=== PATIENT | male | born 1945 | race Two or more races ===

== ENCOUNTER 2022-07-27 19:24 | Inpatient (IN) | payer MEDICARE, OTHER ==
[~2022-07-27] VITALS: Ht 172.7 cm; Wt 88.0 kg
--- NOTE | 2022-07-27 20:33 | NUR ---
ANA FARRIS FROM [facility] C/O EPISODE OF AGGITATION & ELOPMENT ATTEMPT. +WITNESSED GLF. -TRAUMA, PAIN OR KO. ASSISTANT TECHNICIAN TOOK ATIVAN AT SNF. PT A/OX2. TOLERATING R/A WELL WITH NO RESP DISTRESS. SAFETY MEASURES IN PLACE.
--- NOTE | 2022-07-27 21:00 | NUR ---
LAB AT BEDSIDE
--- NOTE | 2022-07-27 21:03 | NUR ---
ANA FARRIS FROM [facility] C/O EPISODE OF AGGITATION ATTEMPTED ELOPEMENT & POSSIBLE GLF. PT AWAKE AND CONFUSED +REDIRECTABLE. DENIES ANY PAIN OR INUJURIES. ATIVAN GIVEN BY SNF IMPLEMENTATION SERVICES ANALYST. CHANGED INTO GOWN AND PLACED ON MONITOR AND V/S WNL. BED AT LOWEST LEVEL, SAFETY PRECAUTIONS IN PLACE, AND SITTER AT BEDSIDE.
--- NOTE | 2022-07-27 21:18 | NUR ---
URINE COLLECTED AND SENT TO LAB
[2022-07-27 21:20] LABS: BASOPHILS % (AUTO) 0.3 % (0.0-2.0); EOSINOPHILS % (AUTO) 1.7 % (0.0-6.0); HEMATOCRIT 35 % (39-51); HEMOGLOBIN 11.8 g/dL (13.5-17.5); LYMPHOCYTES # (AUTO) 0.7 K/uL (0.8-4.8); LYMPHOCYTES % (AUTO) 10.3 % (20.0-44.0); MEAN CORPUSCULAR HGB CONC 34 g/dl (31.0-36.0); MEAN CORPUSCULAR VOLUME 88 fL (80-96); MONOCYTES # (AUTO) 0.7 K/uL (0.1-1.30); MONOCYTES % (AUTO) 10.2 % (2.0-12.0); NEUTROPHILS # (AUTO) 5.1 K/uL (1.8-8.9); NEUTROPHILS % (AUTO) 77.5 % (43.0-81.0); PLATELET COUNT (AUTO) 257 K/uL (150-450); RED BLOOD CELL COUNT(AUTO) 3.96 MIL/uL (4.5-6.0); WHITE BLOOD COUNT (AUTO) 6.6 K/uL (4.3-11.0)
[2022-07-27 21:31] LABS: CALCIUM, SERUM 8.9 mg/dL (8.5-10.1); CARBON DIOXIDE 31 mmol/L (21-32); CHLORIDE 107 mmol/L (98-107); GLUCOSE 103 mg/dL (74-106); POTASSIUM 3.4 mmol/L (3.5-5.1); SODIUM SERUM 143 mmol/L (136-145); UREA NITROGEN, BLOOD 19 mg/dL (7-18)
[2022-07-27 21:38] LABS: ALANINE AMINOTRANSFERASE 25 U/L (12-78); ALBUMIN 3.3 g/dL (3.4-5.0); ALCOHOL, BLOOD < 3 mg/dL (0-0); ALKALINE PHOSPHATASE 81 U/L (46-116); ASPARTATE AMINOTRANSFERASE 19 U/L (15-37); BILIRUBIN,DIRECT 0.1 mg/dL (0.0-0.2); BILIRUBIN,TOTAL 0.3 mg/dL (0.2-1.0); TOTAL PROTEIN, SERUM 6.3 g/dL (6.4-8.2)
[2022-07-27 21:39] LABS: ACETAMINOPHEN 0 ug/ml (10-30)
[2022-07-27 21:55] LABS: BILIRUBIN,URINE NEGATIVE (NEGATIVE); COLOR,URINE YELLOW (YELLOW); LEUKOCYTE ESTERASE ,URINE NEGATIVE (NEGATIVE); NITRITE, URINE NEGATIVE (NEGATIVE); PROTEIN,URINE NEGATIVE (NEGATIVE); UGLUCOSE NEGATIVE (NEGATIVE); UROBILINOGEN,URINE 0.2 EU/dL (0.2)
[2022-07-27 21:56] LABS: BACTERIA,URINE None seen /HPF (None Seen); CALCIUM OXALATE CRYSTALS,UR Moderate /HPF (None Seen); RBC,URINE 0-2 /HPF (0-2); WBC,URINE 0-2 /HPF (0-3)
[2022-07-27] MEDS ORDERED: POTASSIUM CHLORIDE 10 MEQ TABLET.SA PO ONE (22:00)
[2022-07-27] MEDS ORDERED: POTASSIUM CHLORIDE 10 MEQ TABLET.SA ONE (22:42)
--- NOTE | 2022-07-28 02:08 | NUR ---
PT SLEEPING COMOFRTABLY BREATHING UNLABORED. CALL LIGHT WITHIN REACH SITTER AT BEDSIDE.
--- NOTE | 2022-07-28 02:57 | NUR ---
LARGE INCONTINENT URINE NOTED. CHANGED PT'S DIAPER. PT KEPT CLEAN, DRY, SKIN INTACT. REPOSITITIONED PT. SAFETY MEASURES IN PLACE.
--- NOTE | 2022-07-28 06:06 | NUR ---
PT BECOMING INCREASINGLY AGITATED. MADE AWARE
[2022-07-28] MEDS ORDERED: LORAZEPAM INJ 2 MG/ML VIAL ONE (06:12)
[2022-07-28] MEDS ORDERED: LORAZEPAM INJ 2 MG/ML VIAL IM ONE (06:30)
--- NOTE | 2022-07-28 07:20 | NUR ---
Received pt from [facility] confused try to got out off bed
--- NOTE | 2022-07-28 07:54 | NUR ---
BED GIVEN 213B
[2022-07-28] MEDS ORDERED: SENN-261 PO (08:05)
[2022-07-28] MEDS ORDERED: CLON0.5T PO (08:05)
[2022-07-28] MEDS ORDERED: ZOLP5TAB8 PO (08:05)
[2022-07-28] MEDS ORDERED: ACET-868 PO (08:05)
[2022-07-28] MEDS ORDERED: QUET25TA PO (08:05)
[2022-07-28] MEDS ORDERED: NA P133E RC (08:05)
[2022-07-28] MEDS ORDERED: BISA10SU11 RC (08:05)
[2022-07-28] MEDS ORDERED: LORA-259 PO (08:05)
--- NOTE | 2022-07-28 08:25 | NUR ---
call back from daniel rodrigues to confirm that he is coming to eval pt
--- NOTE | 2022-07-28 08:45 | NUR ---
Rk TAMEZ PSYCH EVALUATION
--- NOTE | 2022-07-28 10:49 | NUR ---
PMRT HERE PLACE PT ON 5150 07/28/2022 AT 1015 FOR UNABLE TO TAKE CARE OF HIM SELF
--- NOTE | 2022-07-28 10:56 | NUR ---
MOVE SHEET SUBMITTED.
--- NOTE | 2022-07-28 11:05 | NUR ---
HAND OFF MEG CORONA TO ROOM 213-B VIA BRY LAST VS
--- NOTE | 2022-07-28 12:15 | NUR ---
RN-ADMISSION NOTES [facility] STAFF BROUGHT THE PATIENT IN THE UNIT VIA HOSPITAL BED,AWAKE A/O X1 ,GUARDED,NO ACUTE DISTRESS NOTED. PATIENT ON 5150 HOLD FOR GD ADULT. UPON FACE TO FACE ASSESSMENT,PATIENT IS CONFUSED UNABLE TO ANSWER QUESTIONS.CONTRABAND AND BELONGINGS INVENTORIED. SKIN ASSESSMENT DONE MRSA SWAB DONE AND SENT TO THE LAB. VITAL SIGN TAKEN AND ORIENTED IN THE ROOM BOTH RAILS UP AND BED ALARM ACTIVATED. NO FAMILY TO BE NOTIFIED ON THE ADMISSION.DR. SHAH ( PSYCHIATRIST) AND NAGELIA VERMA AWARE OF THE ADMISSION.
[2022-07-28] MEDS ORDERED: MAGNESIUM HYDROXIDE 30 ML UDC PO PRN (12:30)
[2022-07-28] MEDS ORDERED: BLOOD SUGAR DIAGNOSTIC 1 EACH STRIP IN ONE (12:30)
[2022-07-28] MEDS ORDERED: ZOLPIDEM TARTRATE 5 MG TABLET PO PRN ×2 (12:30→15:30)
[2022-07-28] MEDS ORDERED: ACETAMINOPHEN 325 MG TABLET PO PRN ×2 (12:30→15:30)
[2022-07-28] MEDS ORDERED: MAG HYDROX/AL HYDROX/SIMETH 30 ML UDC PO PRN (12:30)
--- NOTE | 2022-07-28 14:04 | NUR ---
NISHI Initial Discharge Plan: Pt will be discharged back to [email or web address] ([facility]) located at [address] [place] [id number] . NISHI spoke with Blas, admin, from [facility] and she stated that pt is welcomed back upon discharge. NISHI will coordinate appropriate discharge with pt, family, and MD for placement.
--- NOTE | 2022-07-28 14:05 | NUR ---
NISHI Clinical Note: Pt placed on a 5150 hold for GD. Pt from [facility] and was agitated/aggressive at the facility. Pt will be discharged back to [facility] ([facility]) located at [address] [place], [place] [id number] . NISHI spoke with Blas, admin, from [facility] and she stated that pt is welcomed back upon discharge.
--- NOTE | 2022-07-28 14:05 | NUR ---
Treatment Plan: Pt unable to sign treatment plan due to aggressive behavior.
--- NOTE | 2022-07-28 14:34 | NUR ---
NISHI Family Contact: SW attempted to contact pt's cousin Fransisco ([phone]) and left a detailed voicemail.
[2022-07-28] MEDS ORDERED: NA PHOS,M-B/NA PHOS,DI-BA 1 EA ENEMA RC PRN (15:30)
[2022-07-28] MEDS ORDERED: BISACODYL SUPP (10 MG) 10 MG/SUPP.RECT SUPP.RECT RC PRN (15:30)
[2022-07-28] MEDS ORDERED: SENNOSIDES 8.6 MG TABLET PO PRN (15:30)
[2022-07-28 16:04] VITALS: BP 120/70
[2022-07-28] MEDS: LORAZEPAM 0.5 MG TABLET PO PRN (16:40)
--- NOTE | 2022-07-28 16:42 | NUR ---
RN-NOTES PATIENT IS AGITATED BANGING CALIN CHAIR TABLE WITH BOTH HANDS, REDIRECTED AND ATIVAN 1MG P.O GIVEN PRN ORDER. WILL CONT. MONITORING FOR SAFETY AND BEHAVIOR.
--- NOTE | 2022-07-28 18:59 | NUR ---
RN-NOTES PATIENT IN THE HALLWAY UP IN THE CALIN CHAIR AWAKE A/O X1,CONFUSED GUARDED,NO ACUTE DISTRESS NOTED.NEEDS FREQUENT REDIRECTIONS. COMPLIANT WITH MEDICATIONS.NEEDS MINIMAL ASSIST WITH AMBULATION AND ADL'S.ALL NEEDS ATTENDED AND ANTICIPATED. WILL CONT. MONITORING FOR SAFETY AND BEHAVIOR.WILL ENDORSE TO INCOMING NURSE FOR CONTINUITY OF CARE.
--- NOTE | 2022-07-28 19:45 | NUR ---
GPS RN-NOTES RECEIVED PATIENT AWAKE SITTING IN THE CALIN CHAIR, A/O X1 GUARDED, CONFUSED, UNCOOPERATIVE, AND DISORGANIZED. NOTED PT RESISTIVE TO CARE, NEEDS FREQUENT REDIRECTIONS. NO ACUTE DISTRESS NOTED. NEEDS MAXIMUM ASSIST WITH ADL'S. ALL NEEDS ATTENDED AND ANTICIPATED. MONITORING FOR SAFETY AND BEHAVIORAL CHANGES. WILL CONTINUE TO MONITOR THROUGHOUT THE SHIFT.
[2022-07-28 20:16] VITALS: BP 143/69
--- NOTE | 2022-07-28 22:58 | NUR ---
RN note: Noted patient had difficulty falling asleep, Ambien 5 mg PO given as ordered per clinical assessment .
[2022-07-29 06:47] LABS: BASOPHILS % (AUTO) 0.2 % (0.0-2.0); EOSINOPHILS % (AUTO) 2.7 % (0.0-6.0); HEMATOCRIT 40 % (39-51); HEMOGLOBIN 13.3 g/dL (13.5-17.5); LYMPHOCYTES # (AUTO) 0.9 K/uL (0.8-4.8); LYMPHOCYTES % (AUTO) 13.8 % (20.0-44.0); MEAN CORPUSCULAR HGB CONC 33 g/dl (31.0-36.0); MEAN CORPUSCULAR VOLUME 88 fL (80-96); MONOCYTES # (AUTO) 0.6 K/uL (0.1-1.30); MONOCYTES % (AUTO) 8.8 % (2.0-12.0); NEUTROPHILS % (AUTO) 74.5 % (43.0-81.0); PLATELET COUNT (AUTO) 287 K/uL (150-450); RED BLOOD CELL COUNT(AUTO) 4.55 MIL/uL (4.5-6.0); WHITE BLOOD COUNT (AUTO) 6.7 K/uL (4.3-11.0)
[2022-07-29 07:18] LABS: ALANINE AMINOTRANSFERASE 27 U/L (12-78); ALBUMIN 3.7 g/dL (3.4-5.0); ALKALINE PHOSPHATASE 84 U/L (46-116); ASPARTATE AMINOTRANSFERASE 29 U/L (15-37); BILIRUBIN,TOTAL 0.7 mg/dL (0.2-1.0); CARBON DIOXIDE 26 mmol/L (21-32); CHLORIDE 104 mmol/L (98-107); CREATININE 0.9 mg/dL (0.6-1.3); GLUCOSE 119 mg/dL (74-106); MAGNESIUM 2.2 mg/dL (1.8-2.4); PHOSPHORUS 3.4 mg/dL (2.5-4.9); POTASSIUM 3.4 mmol/L (3.5-5.1); SODIUM SERUM 139 mmol/L (136-145); TOTAL PROTEIN, SERUM 7.2 g/dL (6.4-8.2); UREA NITROGEN, BLOOD 14 mg/dL (7-18)
[2022-07-29 07:33] LABS: THYROID STIMULATING HORMONE 7.587 uIU/mL (0.358-3.74)
[2022-07-29 08:00] VITALS: BP 122/65
[2022-07-29] MEDS: LORAZEPAM 0.5 MG TABLET PO PRN ×2 (09:21→18:49)
--- NOTE | 2022-07-29 09:40 | NUR ---
NURSE NOTE: PT AGITATED AT THIS TIME. ATTEMPTED TO GIVE ATIVAN, BUT PT REFUSED. PUSHED IT ASIDE. PT WITH ASSAULTIVE BEHAVIOR TOWARD [facility] RN. DR SHAH NOTIFIED AT THIS TIME. ORDERED ZYPREXA AND ATIVAN IM. WILL CONT TO MONITOR.
--- NOTE | 2022-07-29 09:44 | NUR ---
NISHI Family Contact: SW attempted to contact pt's cousin Fransisco ([phone]) and discussed treatment/discharge plan. Cousin Fransisco stated that she lives in [place]. 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 Cousin Fransisco stated that she is worried about pt and that he will possibly be developing Alzheimers because she stated that it runs in the family. Fransisco stated she is afraid that pt has been developing Dementia or Alzheimers. She would want pt back to [facility].
[2022-07-29] MEDS ORDERED: OLANZAPINE 10 MG VIAL IM ONE (10:00)
[2022-07-29] MEDS ORDERED: LORAZEPAM INJ 2 MG/ML VIAL IV PRN (10:00)
[2022-07-29] MEDS ORDERED: LORAZEPAM INJ 2 MG/ML VIAL IM STA (10:26)
--- NOTE | 2022-07-29 10:32 | NUR ---
PT REQUEST INJECTION .
--- NOTE | 2022-07-29 10:33 | NUR ---
NURSE NOTE: ATIVAN 1MG IM AND ZYPREXA 5 MG IM GIVEN AT THIS TIME. PT VOLUNTARILY ACCEPT INJECTION, NO PHYSICAL HOLD NEEDED UPON ADMINISTRATION. TOLERATED INJECTION WELL ,NO SOB NOTED. REFUSED VS, WILL CONTINUE TO MONITOR.
[2022-07-29] MEDS ORDERED: POTASSIUM CHLORIDE 20 MEQ TAB.PRT.SR PO ONE (11:30)
[2022-07-29] MEDS ORDERED: clonazePAM 0.5 MG TABLET PO PRN (11:30)
--- NOTE | 2022-07-29 11:33 | NUR ---
NURSE NOTE: PT CALM AT THIS TIME. NO SOB. RESPIRATIONS AT 20. PT IN STABLE COND AT THIS TIME. WILL CONT TO MONITOR.
[2022-07-29 16:00] VITALS: BP 138/77
[2022-07-29] MEDS: risperiDONE 1 MG TABLET PO SCH (17:42)
--- NOTE | 2022-07-29 18:50 | NUR ---
NURSE NOTE: PT AGITATED, POUNDING ON TABLE. ATIVAN PO ADMINISTERED ORDERED. PT TOLERATED WELL. WILL CONT TO MONITOR.
[2022-07-29 19:44] VITALS: BP 154/74
--- NOTE | 2022-07-29 19:50 | NUR ---
NURSE NOTE: PT STILL SOMEWHAT ANXIOUS, BUT CALMER AT THIS TIME. ATIVAN EFFECTIVE AT THIS TIME. WILL CONT TO MONITOR.
[2022-07-29] MEDS: ZOLPIDEM TARTRATE 5 MG TABLET PO PRN (21:32)
[2022-07-30] MEDS: LORAZEPAM 0.5 MG TABLET PO PRN ×3 (00:47→21:58)
--- NOTE | 2022-07-30 00:47 | NUR ---
NURSE NOTE: PT AWAKE AND AGITATED AT THIS TIME. BANGING ON THE TABLE. ATIVAN PO ADMINISTERED ORDERED. PT HEIDY WELL. WILL CONT TO MONITOR.
--- NOTE | 2022-07-30 01:45 | NUR ---
NURSES NOTE: PT ASLEEP AT THIS TIME. NO AGITATION NOTED AT THIS TIME. WILL CONT TO MONITOR.
[2022-07-30 08:00] VITALS: BP 142/72
[2022-07-30] MEDS: risperiDONE 1 MG TABLET PO SCH ×2 (08:10→17:37)
--- NOTE | 2022-07-30 09:35 | NUR ---
NISHI Family Contact: SW received a call from pt's cousin Fransisco ([phone]) and she requested for Dr. Tovar to contact her. NISHI notified the nurse.
[2022-07-30 16:00] VITALS: BP 141/74
--- NOTE | 2022-07-30 18:46 | NUR ---
ms rn patient has been on crispin chair most of the time, compliant w/ meds.denies pain ,all needs attended.
--- NOTE | 2022-07-30 19:29 | NUR ---
GPS RN NOTE, PATIENT TIPPED CALIN CHAIR OVER ONTO LEFT SIDE WHILE SITTING IN IT AND THIS EVENT HAPPENED UNWITNESSED. PATIENT IS ALERT X1 CONFUSED, ANXIOUS, AND UNABLE TO ANSWER QUESTIONS. PATIENT HAS SOME FACIAL GRIMACING WHILE EXAMINING HIS LEFT SHOULDER AND EYES ARE P.E.R.R.L.A. PATIENT GIVEN TYLENOL PO Q6HR PRN AND ICE PACK GIVEN FOR LEFT SHOULDER. PATIENT VITAL SIGNS ARE FOLLOWS B/P 138/62, PULSE 89, SPO2 96% ON ROOM AIR, TEMP 98.1, AND RESPIRATIONS 20. PAGED [facility] AND IN FORMED NICCI DOE DNP OF MY FINDINGS. NICCI DOE DNP ORDERED HEAD CT WITHOUT CONTRAST STAT AND LEFT SHOULDER X-RAY COMPLETE STAT. ALL ORDERS NOTED AND CARRIED OUT. LEFT MESSAGE FOR PATIENT CHANEL CHILD SO HE / SHE CAN BE UPDATED ON EVENTS. WILL CONTINUE TO MONITOR THIS PATIENT WITH THE HELP OF STAFF.
[2022-07-30 20:00] VITALS: BP 138/62
--- NOTE | 2022-07-30 22:00 | NUR ---
RN NOTES: ANXIETY PT. NOTED VERY ANXIOUS PARANOID, UNCOOPERTIVE, AGGRESSIVE, NON REDIRECTABLE,PRN ATIVAN 1 MG PO GIVEN , WILL CONTINUE TO MONITOR .
[2022-07-31] MEDS: ZOLPIDEM TARTRATE 5 MG TABLET PO PRN ×2 (00:53→21:47)
[2022-07-31] MEDS ORDERED: Z GUARD REMEDY 4 OZ OINT TP PRN (07:00)
--- NOTE | 2022-07-31 07:35 | NUR ---
WOUND CARE CONSULT: PT SLEEPING SOUNDLY AT THIS TIME AND WAS PREVIOUSLY UNCOOPERATIVE PER NURSING STAFF. REVIEWED CHART, NURSING DOCUMENTATION AND PHOTOS WHICH INDICATE RASH TO GROIN FOLDS AND PERINEUM WELL LEFT LOWER LEG DRY ABRASION. RECOMMENDATIONS MADE FOR SKIN PROTECTION. DISCUSSED WITH NURSING STAFF. MD IN AGREEMENT WITH PLAN OF CARE.
[2022-07-31 08:00] VITALS: BP 137/76
[2022-07-31] MEDS: risperiDONE 1 MG TABLET PO SCH ×2 (08:57→16:08)
[2022-07-31] MEDS: LORAZEPAM 0.5 MG TABLET PO PRN (12:19)
[2022-07-31] MEDS: CLOTRIMAZOLE 1% 15 GM TUBE TP SCH ×2 (12:25→16:07)
[2022-07-31 16:00] VITALS: BP_SYST 113; BP_SYST 125; BP_DIAS 61; BP_DIAS 82
--- NOTE | 2022-07-31 19:30 | NUR ---
GPS RN NOTE, RECEIVED PATIENT AWAKE AND IN CALIN CHAIR, NO S/S OR COMPLAINTS OF PAIN AT THIS TIME. PATIENT IS DISPLAYING NO S/S OF APPARENT DISTRESS AT THIS TIME. PATIENT BREATHING IS UNLABORED WITH EQUAL RISE AND FALL OF THE CHEST. PATIENT IS ALERT AND ORIENTED X 1 ON ROOM AIR WITH A SPO2 99%. PATIENT IS COMPLAINT WITH MEDICATIONS WHEN CRUSHED, CONFUSED, DISORGANIZED, FORGETFUL, AND COOPERATIVE. PATIENT DENIES SUICIDAL AND HOMICIDAL IDEATIONS AT THIS TIME. PATIENT ASSISTED WITH TURNING AND REPOSITIONING Q2HR AND PRN FOR COMFORT AND CIRCULATION. PATIENT HAS NO NEEDS AT THIS TIME. PATIENT EDUCATED ON THE USE OF THE CALL BUCKNER. PATIENT BED SIDE RAILS UP X 2 FOR SAFETY. PATIENT BED IS LOCKED, LOW, WITH BED ALARM ON. WILL CONTINUE TO MONITOR THIS PATIENT Q15 MINUTES WITH THE HELP OF STAFF TO MAINTAIN SAFETY.
[2022-07-31 20:00] VITALS: BP 137/70
--- NOTE | 2022-07-31 21:47 | NUR ---
GPS RN NOTE, PATIENT HAS A COMPLAINT OF NOT BEING ABLE TO SLEEP AND IS REQUESTING AMBIEN AT THIS TIME. PATIENT VITAL SIGNS ARE STABLE. PATIENT VITAL SIGNS ARE STABLE. GAVE AMBIEN 5MG PO HS PRN ORDERED. WILL REASSESS INSOMNIA AND I WILL CONTINUE TO MONITOR THIS PATIENT WITH THE HELP OF STAFF.
[2022-08-01] MEDS: LORAZEPAM 0.5 MG TABLET PO PRN (01:43)
--- NOTE | 2022-08-01 01:43 | NUR ---
GPS RN NOTE, PATIENT HAS A COMPLAINT OF FEELING ANXIOUS AND IS REQUESTING ATIVAN AT THIS TIME. PATIENT VITAL SIGNS ARE STABLE. GAVE ATIVAN 1MG PO Q6HR PRN ORDERED. WILL REASSESS FOR ANXIETY AND I WILL CONTINUE TO MONITOR THIS PATIENT WITH THE HELP OF STAFF.
[2022-08-01] MEDS: CLOTRIMAZOLE 1% 15 GM TUBE TP SCH ×2 (07:42→16:14)
[2022-08-01] MEDS: risperiDONE 1 MG TABLET PO SCH ×2 (07:42→16:17)
--- NOTE | 2022-08-01 07:50 | NUR ---
Dr. Tovar in the unit and ordered EEG
[2022-08-01 08:00] VITALS: BP 134/95
[2022-08-01 16:00] VITALS: BP 115/83
--- NOTE | 2022-08-01 19:30 | NUR ---
GPS RN NOTE, RECEIVED PATIENT AWAKE AND IN CALIN CHAIR, NO S/S OR COMPLAINTS OF PAIN AT THIS TIME. PATIENT IS DISPLAYING NO S/S OF APPARENT DISTRESS AT THIS TIME. PATIENT BREATHING IS UNLABORED WITH EQUAL RISE AND FALL OF THE CHEST. PATIENT IS ALERT AND ORIENTED X 1 ON ROOM AIR WITH A SPO2 97%. PATIENT IS COMPLAINT WITH MEDICATIONS WHEN CRUSHED, CONFUSED, DISORGANIZED, FORGETFUL, AND COOPERATIVE. PATIENT DENIES SUICIDAL AND HOMICIDAL IDEATIONS AT THIS TIME. PATIENT ASSISTED WITH TURNING AND REPOSITIONING Q2HR AND PRN FOR COMFORT AND CIRCULATION. PATIENT HAS NO NEEDS AT THIS TIME. PATIENT EDUCATED ON THE USE OF THE CALL BUCKNER. PATIENT BED SIDE RAILS UP X 2 FOR SAFETY. PATIENT BED IS LOCKED, LOW, WITH BED ALARM ON. WILL CONTINUE TO MONITOR THIS PATIENT Q15 MINUTES WITH THE HELP OF STAFF TO MAINTAIN SAFETY.
[2022-08-01 20:00] VITALS: BP 116/97
[2022-08-01] MEDS: ZOLPIDEM TARTRATE 5 MG TABLET PO PRN (22:25)
--- NOTE | 2022-08-01 22:25 | NUR ---
GPS RN NOTE, PATIENT HAS A COMPLAINT OF NOT BEING ABLE TO SLEEP AND IS REQUESTING AMBIEN AT THIS TIME. PATIENT VITAL SIGNS ARE STABLE. GAVE AMBIEN 5MG PO HS PRN ORDERED. WILL REASSESS INSOMNIA AND I WILL CONTINUE TO MONITOR THIS PATIENT WITH THE HELP OF STAFF.
[2022-08-02 08:00] VITALS: BP 118/64
[2022-08-02] MEDS: risperiDONE 1 MG TABLET PO SCH ×2 (08:22→17:24)
[2022-08-02] MEDS: CLOTRIMAZOLE 1% 15 GM TUBE TP SCH ×2 (12:25→17:25)
[2022-08-02] MEDS: LORAZEPAM 0.5 MG TABLET PO PRN (12:30)
[2022-08-02 16:00] VITALS: BP 127/60
[2022-08-02 20:12] VITALS: BP 117/65
--- NOTE | 2022-08-02 21:16 | NUR ---
RN note: Patient refused skin reassessment,offered 3 x but continuously refusing.
[2022-08-02] MEDS: ZOLPIDEM TARTRATE 5 MG TABLET PO PRN (21:22)
[2022-08-03] MEDS: LORAZEPAM 0.5 MG TABLET PO PRN ×2 (00:20→23:02)
--- NOTE | 2022-08-03 00:24 | NUR ---
RN note: Patient noted restless,anxious,yelling ,screaming.Given Ativan 1 mg PO as ordered fper clinical assessment.Will monitor for the effect in 1 hour.Will continue to monitor q15 min rounds for safety.
[2022-08-03 08:00] VITALS: BP 108/63
[2022-08-03] MEDS: risperiDONE 1 MG TABLET PO SCH ×2 (08:39→17:26)
[2022-08-03] MEDS: CLOTRIMAZOLE 1% 15 GM TUBE TP SCH ×2 (08:40→17:26)
[2022-08-03 16:00] VITALS: BP 125/58
[2022-08-03 19:36] VITALS: BP 134/62
[2022-08-03] MEDS: ZOLPIDEM TARTRATE 5 MG TABLET PO PRN (21:50)
[2022-08-04 08:00] VITALS: BP 130/76
--- NOTE | 2022-08-04 08:17 | NUR ---
SW Discharge Note: Pt will be discharged to [facility] ([facility]) located at [address] [place] [address] . Please arrange ambulance at 2PM. Pts cousin Fransisco ([phone]) is aware and agreeable. Upon discharge, the pt appears to be in a dysphoric mood and presented with a congruent affect. Pt appears to be alert and oriented x2. Pt denies both suicidal and homicidal ideation as well as auditory and visual hallucinations. Pt will continue to be under the care of psychiatrist, Dr. Solis, located at [id number] [place] [id number]; ([phone]). Pt will be under the care of box builder, Dr. Madrid, located at [address] [place] [address]; ([phone]). The choice of vendor form and multidisciplinary exit care form were done, printed, signed, and given to the patient.
[2022-08-04] MEDS: CLOTRIMAZOLE 1% 15 GM TUBE TP SCH (09:51)
[2022-08-04] MEDS: risperiDONE 1 MG TABLET PO SCH (09:51)
--- NOTE | 2022-08-04 12:36 | NUR ---
CALLED [facility] @ , AND GAVE REPORT TO NURSE CHLOE LEVY AND GAVE FULL REPORT FOR THE PATIENT. INFORMED OF THE POSSIBLE WELLNESS INSTRUCTOR TIME @ [facility] AT 1330.
--- NOTE | 2022-08-04 13:42 | NUR ---
AMBULANCE ([facility]) CAME TO GUEST REQUEST RUNNER THE PATIENT, GAVE REPORT TO DEX AND HANDED DISCHARGE PAPERWORK TO THE PERSONNEL. ALSO HANDED PATIENT'S SEALED MONETARY PLASTIC BAG TO THE AMBULANCE PERSONNEL IN ORDER TO HAND IT TO THE NURSE AT THE FACILITY. PATIENT DENIES SUICIDAL IDEATION, HOMICIDAL IDEATION, AND NO AUDIO/VISUAL HALLUCINATION NOTED DURING DISCHARGE. PATIENT LEFT VIA GURNEY IN NO APPARENT DISTRESS.
== END 2022-08-04 13:45 | DRG 885 ==
LOC: ER 19:29 → GPS 07-28 11:28
PROVIDERS: ADMIT Psychiatry & Neurology Psychiatry
DX: F29 Unspecified psychosis not due to a substance or known physiological condition (principal); G93.41 Metabolic encephalopathy; F02.818 Dementia in other diseases classified elsewhere, unspecified severity, with other behavioral disturbance; E11.9 Type 2 diabetes mellitus without complications; G30.9 Alzheimer's disease, unspecified; Z73.6 Limitation of activities due to disability; F20.9 Schizophrenia, unspecified; I10 Essential (primary) hypertension; F32.A Depression, unspecified; E87.6 Hypokalemia; E86.0 Dehydration; E66.9 Obesity, unspecified; Z68.29 Body mass index [BMI] 29.0-29.9, adult; E03.8 Other specified hypothyroidism; Z91.199 Patient's noncompliance with other medical treatment and regimen due to unspecified reason; Z81.8 Family history of other mental and behavioral disorders; W18.30XA Fall on same level, unspecified, initial encounter; Y92.9 Unspecified place or not applicable; R94.6 Abnormal results of thyroid function studies
CPT/HCPCS: 36415; 70450-TC; 73030-TC; 80048-TC; 80053-TC; 80061-TC; 80076-TC; 81001; 82607-TC; 82962-TC; 83735-TC; 84100-TC; 84436-TC; 84443-TC; 85025-TC; 87081-TC; 92526; 92611-TC; 97112-TC; 97116-TC; 97530-TC; C9803; G0480; J2060; J3490